=== PATIENT | female | born 1960 | race Caucasian/White ===

== ENCOUNTER 2021-03-15 21:50 | Emergency (ER) | payer OTHER ==
[2021-03-16 00:01] LABS: Absolute Lymphocytes (CBC) 2.8 K/uL (0.7-4.9); Basophils % 0.2 % (0-1.3); Hematocrit 36.3 % (36.0-45.0); Lymphocytes % 36.6 % (15.3-44.8); MPV 9.6 fL (7.6-11.3); RBC Red Blood Cell Count 4.06 M/uL (3.86-4.86)
[2021-03-16 00:01] LABS: Protime INR 1.03
[2021-03-16 00:20] LABS: ALT/SGPT 29 U/L (12-78); AST/SGOT 15 U/L (15-37); Albumin 3.8 g/dL (3.4-5.0); Alkaline Phosphatase 65 U/L (45-117); BUN Blood Urea Nitrogen 14 mg/dL (7-18); Bicarbonate 27 mmol/L (21-32); Bilirubin Direct 0.1 mg/dL (0-0.2); Bilirubin Total 0.3 mg/dL (0.2-1.0); Glucose Level 84 mg/dL (74-106); Magnesium 2.1 mg/dL (1.8-2.4); NT PRO-BNP 285 pg/mL (<125); Potassium 3.1 mmol/L (3.5-5.1); Protein, Total 6.7 g/dL (6.4-8.2); Sodium Level 142 mmol/L (136-145); Troponin (Emerg Dept Use Only) < 0.02 ng/mL (0.0-0.045)
--- NOTE | 2021-03-16 01:13 | EDPHYS ---
Physician Documentation [facility] Name: Mala Chavira Age: 60 yrs Sex: Female : 1960 Arrival Date: 03/15/2021 Time: 21:54 Bed 14 Private MD: ED Physician Horace Villatoro HPI: 03/15 22:41 This 60 yrs old Female presents to ER via Ambulatory with complaints of Chest pkl Pain > 30 y/o. 22:42 The patient presents with a history of heart racing. Onset: The symptoms/episode pkl began/occurred 2 day(s) ago. Associated signs and symptoms: Pertinent negatives: chest pain. Historical: - Allergies: 22:15 Bactrim; kg 22:15 Codeine; kg 22:15 Sulfa (Sulfonamide Antibiotics); kg - Home Meds: 22:15 clonazepam 1 mg Oral TbDi 3 times per day [Active]; losartan 50 mg Oral tab 1 tab once kg daily [Active]; pantoprazole 40 mg Oral TbEC 1 tab once daily [Active]; quetiapine 400 mg Oral tab 1 tab once daily [Active]; sertraline 100 mg Oral tab 1 tab once daily [Active]; - PMHx: 22:15 Depression; GERD; Glaucoma; Hep C - Cured; Hypertensive disorder; Night Terrors; kg - PSHx: 22:15 Cholecystectomy; Ligation of fallopian tube; kg - Immunization history:: Adult Immunizations not up to date, Client reports receiving the 2nd dose of the Covid vaccine, Date received: February 08, 2021 [place] Client reports receiving the 1st dose of the Covid vaccine, January 18, 2021 [place]. - Social history:: Smoking status: Patient denies any tobacco usage or history of. Patient uses alcohol, occasionally. ROS: 22:42 Eyes: Negative for injury, pain, redness, and discharge, ENT: Negative for injury, pkl pain, and discharge, Neck: Negative for injury, pain, and swelling. 22:42 Cardiovascular: Positive for palpitations. 22:42 Respiratory: Negative for cough, shortness of breath. 22:42 Abdomen/GI: Negative for abdominal pain, nausea, vomiting, and diarrhea. 22:42 Back: Negative for acute changes. 22:42 : Negative for urinary symptoms. 22:42 MS/extremity: Negative for acute changes. 22:42 Skin: Negative for rash. 22:42 Neuro: Negative for altered mental status, loss of consciousness. Exam: 22:42 Head/Face: Normocephalic, atraumatic. Eyes: Pupils equal round and reactive to light, pkl extra-ocular motions intact. Lids and lashes normal. Conjunctiva and sclera are non-icteric and not injected. Cornea within normal limits. Periorbital areas with no swelling, redness, or edema. ENT: Nares patent. No nasal discharge, no septal abnormalities noted. Tympanic membranes are normal and external auditory canals are clear. Oropharynx with no redness, swelling, or masses, exudates, or evidence of obstruction, uvula midline. Mucous membranes moist. Neck: Trachea midline, no thyromegaly or masses palpated, and no cervical lymphadenopathy. Supple, full range of motion without nuchal rigidity, or vertebral point tenderness. No Meningismus. Chest/axilla: Normal chest wall appearance and motion. Nontender with no deformity. No lesions are appreciated. 22:42 Cardiovascular: Rate: normal, Rhythm: regular. 22:42 ECG was reviewed by the Attending Physician. 22:42 Respiratory: the patient does not display signs of respiratory distress, Respirations: normal, Breath sounds: are clear throughout. 22:42 Abdomen/GI: Bowel sounds: normal, Palpation: abdomen is soft and non-tender, in all quadrants. 22:42 Back: Exam negative for acute changes. 22:42 : Exam negative for acute changes. 22:42 Musculoskeletal/extremity: Exam is negative for acute changes. 22:42 Skin: Exam negative for rash. 22:42 Neuro: Orientation: is normal, Mentation: is normal, Cranial nerves: grossly normal, Motor: is normal. Vital Signs: 22:03 BP 158 / 93; Pulse 70; Resp 20; Temp 98.3(TE); Pulse Ox 100% on R/A; Weight 81.65 kg kg (R); Height 5 ft. 4 in. (162.56 cm) (R); Pain 0/10; 22:56 BP 146 / 76 RA Supine (/lg); Pulse 66 MON; Resp 18; Temp 98.2; Pulse Ox 66% ; Weight wr 80.74 kg; Height 5 ft. (152.40 cm); Pain 0/10; 23:40 BP 137 / 84; Pulse 92; Resp 20; Temp 96.2; Pulse Ox 98% on R/A; cc4 03/16 00:16 BP 155 / 81; Pulse 60; Resp 20; Temp 97.6; Pulse Ox 60% ; wr 03/15 22:56 Body Mass Index 34.76 (80.74 kg, 152.40 cm) wr MDM: 03/15 22:33 Patient medically screened. pkl 03/16 01:06 Data reviewed: vital signs, nurses notes, lab test result(s), EKG, radiologic studies, pkl plain films. ED course: Patient feeling better. Discussed lab, EKG and CXR with patient. Advised to follow up with Dr. Grady ( Cardiology ) in 2 to 3 days for further evaluations. To return if necessary. Patient understood instructions. 03/15 22:40 Order name: Basic Metabolic Panel; Complete Time: 01:03 pkl 03/15 22:40 Order name: CBC with Diff; Complete Time: 00:16 pkl 03/15 22:40 Order name: LFT's; Complete Time: 01:03 pkl 03/15 22:40 Order name: Magnesium; Complete Time: 01:03 pkl 03/15 22:40 Order name: NT PRO-BNP; Complete Time: 01:03 pkl 03/15 22:40 Order name: PT-INR; Complete Time: 00:16 pkl 03/15 22:40 Order name: Troponin (emerg Dept Use Only); Complete Time: 01:03 pkl 03/15 22:40 Order name: XRAY Chest (1 view) pkl 03/15 22:40 Order name: EKG; Complete Time: 22:41 pkl 03/15 22:40 Order name: Cardiac monitoring; Complete Time: 22:44 pkl 03/15 22:40 Order name: EKG - Nurse/Tech; Complete Time: 22:44 pkl 03/15 22:40 Order name: TSH; Complete Time: 01:03 pkl 03/16 00:40 Order name: T4 Free; Complete Time: 01:03 EDMS 03/15 22:40 Order name: IV Saline Lock; Complete Time: 22:54 pkl 03/15 22:40 Order name: Labs collected and sent; Complete Time: 22:54 pkl 03/15 22:40 Order name: O2 Per Protocol; Complete Time: 22:44 pkl 03/15 22:40 Order name: O2 Sat Monitoring; Complete Time: 22:44 pkl Administered Medications: 01:20 Drug: K-Lyte (potassium) Effervescent Tablet 50 mEq Route: PO; wr Disposition Summary: 03/16/21 01:11 Discharge Ordered Location: Home pkl Problem: new pkl Symptoms: have improved pkl Condition: Stable pkl Diagnosis - Palpitations. Hypokalemia pkl Followup: pkl - With: Bradly Grady MD - When: 2 - 3 days - Reason: Re-evaluation by your physician Discharge Instructions: - Discharge Summary Sheet pkl Forms: - Medication Reconciliation Form pkl - Thank You Letter pkl - Antibiotic Education pkl - Prescription Opioid Use pkl Prescriptions: - Carvedilol 6.25 mg Oral Tablet - take 1 tablet by ORAL route 2 times per day with food; 60 tablet; Refills: 0, pkl Product Selection Permitted Signatures: Dispatcher [employer] Horace Prakash MD MD pkl Ghislaine Gutierres, ERIS RN Esme Morrissey wr
--- NOTE | 2021-03-16 01:13 | ER ---
Nurse's Notes [facility] Name: Mala Chavira Age: 60 yrs Sex: Female : 1960 Arrival Date: 03/15/2021 Time: 21:54 Bed 14 Private MD: Diagnosis: Palpitations. Hypokalemia Presentation: 03/15 22:03 Chief complaint: Patient states: Pt stated, " I feel like my heart is jumping all kg around." x 2 days. Coronavirus screen: Vaccine status: At this time, the client does not indicate any symptoms associated with coronavirus-19. Ebola Screen: Patient negative for fever greater than or equal to 101.5 degrees Fahrenheit, and additional compatible Ebola Virus Disease symptoms Patient denies exposure to infectious person. Patient denies travel to an Ebola-affected area in the 21 days before illness onset. Initial Sepsis Screen: Does the patient meet any 2 criteria? No. Patient's initial sepsis screen is negative. Does the patient have a suspected source of infection? No. Patient's initial sepsis screen is negative. Risk Assessment: Do you want to hurt yourself or someone else? Patient reports no desire to harm self or others. Onset of symptoms was March 14, 2021. 22:03 Method Of Arrival: Ambulatory kg 22:03 Acuity: SAVI 3 kg 22:14 Coronavirus screen: Vaccine status: Patient reports receiving the 2nd dose of the covid kg vaccine. Date February 08, 2021 [facility] Patient reports receiving the 1st dose of the Covid vaccine. Date January 18, 2021 [facility]. Triage Assessment: 22:15 General: Appears in no apparent distress. Behavior is calm, cooperative, appropriate kg for age, quiet. Pain: Denies pain. Cardiovascular: Reports It feels like I'm heart is jumping all over the place. Historical: - Allergies: 22:15 Bactrim; kg 22:15 Codeine; kg 22:15 Sulfa (Sulfonamide Antibiotics); kg - Home Meds: 22:15 clonazepam 1 mg Oral TbDi 3 times per day [Active]; losartan 50 mg Oral tab 1 tab once kg daily [Active]; pantoprazole 40 mg Oral TbEC 1 tab once daily [Active]; quetiapine 400 mg Oral tab 1 tab once daily [Active]; sertraline 100 mg Oral tab 1 tab once daily [Active]; - PMHx: 22:15 Depression; GERD; Glaucoma; Hep C - Cured; Hypertensive disorder; Night Terrors; kg - PSHx: 22:15 Cholecystectomy; Ligation of fallopian tube; kg - Immunization history:: Adult Immunizations not up to date, Client reports receiving the 2nd dose of the Covid vaccine, Date received: February 08, 2021 [place] Client reports receiving the 1st dose of the Covid vaccine, January 18, 2021 [place]. - Social history:: Smoking status: Patient denies any tobacco usage or history of. Patient uses alcohol, occasionally. Screenin:17 Abuse screen: Denies threats or abuse. Denies injuries from another. Nutritional kg screening: No deficits noted. Tuberculosis screening: No symptoms or risk factors identified. Fall Risk None identified. Assessment: 22:59 Reassessment: No changes from previously documented assessment. Pain: Denies pain. wr 22:59 Pain: Complains of pain in face Pain currently is 10 out of 10 on a pain scale. Pain cc4 began 2 hours ago. 23:40 Reassessment: Patient appears in no apparent distress at this time. Pain: Denies pain. cc4 23:48 Pain: Pain began. cc4 Vital Signs: 22:03 BP 158 / 93; Pulse 70; Resp 20; Temp 98.3(TE); Pulse Ox 100% on R/A; Weight 81.65 kg kg (R); Height 5 ft. 4 in. (162.56 cm) (R); Pain 0/10; 22:56 BP 146 / 76 RA Supine (/lg); Pulse 66 MON; Resp 18; Temp 98.2; Pulse Ox 66% ; Weight wr 80.74 kg; Height 5 ft. (152.40 cm); Pain 0/10; 23:40 BP 137 / 84; Pulse 92; Resp 20; Temp 96.2; Pulse Ox 98% on R/A; cc4 03/16 00:16 BP 155 / 81; Pulse 60; Resp 20; Temp 97.6; Pulse Ox 60% ; wr 03/15 22:56 Body Mass Index 34.76 (80.74 kg, 152.40 cm) wr ED Course: 03/15 21:54 Patient arrived in ED. wm 22:05 Triage completed. kg 22:17 Patient has correct armband on for positive identification. 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 Pulse kg ox on. NIBP on. 22:17 No provider procedures requiring assistance completed. Patient maintains SpO2 kg saturation greater than 95% on room air. 22:33 Horace Villatoro MD is Attending Physician. pkl 22:50 XRAY Chest (1 view) In Process Unspecified. EDMS 22:54 Basic Metabolic Panel Sent. wr 22:54 CBC with Diff Sent. wr 22:54 LFT's Sent. wr 22:55 Magnesium Sent. wr 22:55 NT PRO-BNP Sent. wr 22:55 PT-INR Sent. wr 22:55 Troponin (emerg Dept Use Only) Sent. wr 22:59 Inserted saline lock: 20 gauge in left antecubital area, using aseptic technique. wr 23:28 Pita Moralez, RN is Primary Nurse. cc4 23:40 IV discontinued, intact, bleeding controlled, No redness/swelling at site. Pressure cc4 dressing applied. 03/16 01:11 Bradly Grady MD is Referral Physician. pkl Administered Medications: 01:20 Drug: K-Lyte (potassium) Effervescent Tablet 50 mEq Route: PO; wr Outcome: 03/15 23:40 Discharged to home ambulatory. cc4 Condition: improved Discharge instructions given to patient, Instructed on discharge instructions, follow up and referral plans. medication usage, Demonstrated understanding of instructions, follow-up care, medications. 03/16 01:11 Discharge ordered by . pkl 01:36 Patient left the ED. wr Signatures: Dispatcher [employer] EDMS Horace Villatoro MD MD pkl Ghislaine Gutierres, ERIS RN Nataliia Morales Pita Moralez RN RN cc4 Esme Arambula wr
[2021-03-16] MEDS ORDERED: POTASSIUM 25 MEQ EFFERV TAB ONE (01:33)
[2021-03-16 01:47] VITALS: BP 155/81; TEMP 97.6; O2SAT 60
--- NOTE | 2021-03-16 07:11 | RAD REPORT ---
EXAM DESCRIPTION: RAD - Chest Single View - 03/15/2021 10:50 pm CLINICAL HISTORY: PALPITATIONS COMPARISON: CHEST PA AND LAT 2 VIEW dated 03/24/2010 FINDINGS: Lines: None. Lungs: No evidence of edema or pneumonia. Pleural: No significant pleural effusions or pneumothorax. Cardiac: The heart size is within normal limits. Bones: No acute fractures. Other: IMPRESSION: No acute cardiopulmonary disease.
--- NOTE | 2021-03-16 15:57 | EKG ---
Test Date: 2021-03-15 Test Time: 22:18:32 [employer]: MEASUREMENT RESULTS: Intervals: Rate: 70 NH: 150 QRSD: 82 QT: 398 QTc: 429 [place]: P: 19 NH: 150 QRS: 50 T: 28 INTERPRETIVE STATEMENTS: Normal sinus rhythm Cannot rule out Anterior infarct, age undetermined Abnormal ECG Compared to ECG 03/24/2010 09:06:30 Myocardial infarct finding now present Sinus bradycardia no longer present Electronically Signed On 03-16-21 15:56:17 CDT by Bradly Grady
== END 2021-03-16 01:36 | disposition home or self-care (01) ==
LOC: ER 21:50
DX: E87.6 Hypokalemia (principal); R00.2 Palpitations; I10 Essential (primary) hypertension; F32.9 Major depressive disorder, single episode, unspecified; Z88.1 Allergy status to other antibiotic agents; Z88.2 Allergy status to sulfonamides; Z88.5 Allergy status to narcotic agent
CPT/HCPCS: 36415; 71045; 80048; 80076; 83735; 83880; 84439; 84443; 84484; 85025; 85610; 93005; 99285

== ENCOUNTER 2022-08-09 10:34 | Emergency (ER) | payer OTHER ==
--- OUTSIDE RECORDS SUMMARY | 2022-08-09 10:38 | XMS REPORT | Continuity of Care Document ---
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 Thyrotropin [Units/volume] in 1.960 uIU/mL 0.450-4.500 Serum or Plasma by Detection limit <= 0.005 mIU/L (test code = 04071-3) Thyroxine (T4) free 0.86 NG/dL 0.82-1.77 [Mass/volume] in Serum or Plasma (test code = 3024-7) [facility] W Auto Differential panel - Blood 2020-01-22 00:00:00 Test Item Value Reference Range Interpretation Comments Leukocytes [#/volume] in Blood 6.6 x10e3/uL 3.4-10.8 by Automated count (test code = 6690-2) Erythrocytes [#/volume] in 4.62 x10e6/uL 3.77-5.28 Blood by Automated count (test code = 789-8) Hemoglobin [Mass/volume] in 14.0 g/dL 11.1-15.9 Blood (test code = 718-7) Hematocrit [Volume Fraction] of 42.4 % 34.0-46.6 Blood by Automated count (test code = 4544-3) MCV [Entitic volume] by 92 fL 79-97 Automated count (test code = 787-2) MCH [Entitic mass] by Automated 30.3 pg 26.6-33.0 count (test code = 785-6) MCHC [Mass/volume] by Automated 33.0 g/dL 31.5-35.7 count (test code = 786-4) Erythrocyte distribution width 12.4 % 11.7-15.4 [Ratio] by Automated count (test code = 788-0) Platelets [#/volume] in Blood 195 x10e3/uL 150-450 by Automated count (test code = 777-3) Neutrophils/100 leukocytes in 57 % not estab. Blood by Automated count (test code = 770-8) Lymphocytes/100 leukocytes in 31 % not estab. Blood by Automated count (test code = 736-9) Monocytes/100 leukocytes in 8 % not estab. Blood by Automated count (test code = 5905-5) Eosinophils/100 leukocytes in 3 % not estab. Blood by Automated count (test code = 713-8) Basophils/100 leukocytes in 0 % not estab. Blood by Automated count (test code = 706-2) immature cells (test code = mathematics education professor immature cells) Neutrophils [#/volume] in Blood 3.8 x10e3/uL 1.4-7.0 by Automated count (test code = 751-8) Lymphocytes [#/volume] in Blood 2.0 x10e3/uL 0.7-3.1 by Automated count (test code = 731-0) Monocytes [#/volume] in Blood 0.5 x10e3/uL 0.1-0.9 by Automated count (test code = 742-7) Eosinophils [#/volume] in Blood 0.2 x10e3/uL 0.0-0.4 by Automated count (test code = 711-2) Basophils [#/volume] in Blood 0.0 x10e3/uL 0.0-0.2 by Automated count (test code = 704-7) Immature granulocytes/100 1 % not estab. leukocytes in Blood by Automated count (test code = 03040-4) Immature granulocytes 0.0 x10e3/uL 0.0-0.1 [#/volume] in Blood by Automated count (test code = 19477-6) Nucleated erythrocytes/100 mathematics education professor leukocytes [Ratio] in Blood by Automated count (test code = 44712-9) Morphology [Interpretation] in mathematics education professor Blood Narrative (test code = 83515-9) [facility] CenterCom[facility] 2000 panel - Serum or [id number] 00:00:00 Test Item Value Reference Range Interpretation Comments Glucose [Mass/volume] in Serum 80 mg/dL 65-99 or Plasma (test code = 2345-7) Urea nitrogen [Mass/volume] in 19 mg/dL 8-27 Serum or Plasma (test code = 3094-0) Creatinine [Mass/volume] in 0.85 mg/dL 0.57-1.00 Serum or Plasma (test code = 2160-0) Glomerular filtration 75 mL/min/1.73 >59 rate/1.73 sq M.predicted among non-blacks [Volume Rate/Area] in Serum, Plasma or Blood by Creatinine-based formula (CKD-EPI) (test code = 62627-8) Glomerular filtration 86 mL/min/1.73 >59 rate/1.73 sq M.predicted among blacks [Volume Rate/Area] in Serum, Plasma or Blood by Creatinine-based formula (CKD-EPI) (test code = 37906-6) Urea nitrogen/Creatinine [Mass 22 12-28 Ratio] in Serum or Plasma (test code = 3097-3) Sodium [Moles/volume] in Serum 139 mmol/L 134-144 or Plasma (test code = 2951-2) Potassium [Moles/volume] in 4.4 mmol/L 3.5-5.2 Serum or Plasma (test code = 2823-3) Chloride [Moles/volume] in 101 mmol/L 96-106 Serum or Plasma (test code = 2074-0) Carbon dioxide, total 20 mmol/L 20-29 [Moles/volume] in Serum or Plasma (test code = 2027-9) Calcium [Mass/volume] in Serum 9.3 mg/dL 8.7-10.3 or Plasma (test code = 68032-3) Protein [Mass/volume] in Serum 7.4 g/dL 6.0-8.5 or Plasma (test code = 2885-2) Albumin [Mass/volume] in Serum 4.8 g/dL 3.8-4.9 or Plasma (test code = 1751-7) Globulin [Mass/volume] in 2.6 g/dL 1.5-4.5 Serum by calculation (test code = 21376-6) Albumin/Globulin [Mass Ratio] 1.8 1.2-2.2 in Serum or Plasma (test code = 1759-0) Bilirubin.total [Mass/volume] 0.5 mg/dL 0.0-1.2 in Serum or Plasma (test code = 1974-2) Alkaline phosphatase 67 IU/L 39-117 [Enzymatic activity/volume] in Serum or Plasma (test code = 6768-6) Aspartate aminotransferase 28 IU/L 0-40 [Enzymatic activity/volume] in Serum or Plasma (test code = 1920-8) Alanine aminotransferase 42 IU/L 0-32 H [Enzymatic activity/volume] in Serum or Plasma (test code = 1742-6) [facility] - [facility] or Plasma 2020-01-22 00:00:00 Test Item Value Reference Range Interpretation Comments Cholesterol [Mass/volume] in Serum 193 mg/dL 100-199 or Plasma (test code = 2092-3) Triglyceride [Mass/volume] in Serum 115 mg/dL 0-149 or Plasma (test code = 2571-8) Cholesterol in HDL [Mass/volume] in 76 mg/dL >39 Serum or Plasma (test code = 2084-9) Cholesterol in VLDL [Mass/volume] 23 mg/dL 5-40 in Serum or Plasma by calculation (test code = 67853-4) Cholesterol in LDL [Mass/volume] in 94 mg/dL 0-99 Serum or Plasma by calculation (test code = 96391-2) Laboratory comment [Text] in Report mathematics education professor Narrative (test code = 55854-7) [facility] [Presence] in Serum by RPR 2020-01-22 00:00:00 Test Item Value Reference Range Interpretation Comments Reagin Ab [Presence] in Serum by non reactive non reactive RPR (test code = 29893-2) [facility]HIV [facility]2 Ab+HIV1 p24 Ag [Presence] in Serum or Plasma by [id number] 00:00:00 Test Item Value Reference Range Interpretation Comments HIV 1+2 Ab+HIV1 p24 Ag non reactive non reactive [Presence] in Serum or Plasma by Immunoassay (test code = 74799-0) [facility] CenterHepatitis B virus surface Ag [Presence] in Serum or Plasma by [id number] 00:00:00 Test Item Value Reference Range Interpretation Comments Hepatitis B virus surface Ag negative negative [Presence] in Serum or Plasma by Immunoassay (test code = 5196-1) [facility]erc[facility] panel, [id number] 00:00:00 Test Item Value Reference Range Interpretation Comments interpretation (test code = note interpretation) pdf (test code = pdf) . [facility]Free T[facility] and TSH panel - Serum or [id number] 00:00:00 Test Item Value Reference Range Interpretation Comments Thyrotropin [Units/volume] in 1.960 uIU/mL 0.450-4.500 Serum or Plasma by Detection limit <= 0.005 mIU/L (test code = 62742-3) Thyroxine (T4) free 0.86 NG/dL 0.82-1.77 [Mass/volume] in Serum or Plasma (test code = 3024-7) [facility]CBC [facility] Auto Differential panel - Blood 2020-01-22 00:00:00 Test Item Value Reference Range Interpretation Comments Leukocytes [#/volume] in Blood 6.6 x10e3/uL 3.4-10.8 by Automated count (test code = 6690-2) Erythrocytes [#/volume] in 4.62 x10e6/uL 3.77-5.28 Blood by Automated count (test code = 789-8) Hemoglobin [Mass/volume] in 14.0 g/dL 11.1-15.9 Blood (test code = 718-7) Hematocrit [Volume Fraction] of 42.4 % 34.0-46.6 Blood by Automated count (test code = 4544-3) MCV [Entitic volume] by 92 fL 79-97 Automated count (test code = 787-2) MCH [Entitic mass] by Automated 30.3 pg 26.6-33.0 count (test code = 785-6) MCHC [Mass/volume] by Automated 33.0 g/dL 31.5-35.7 count (test code = 786-4) Erythrocyte distribution width 12.4 % 11.7-15.4 [Ratio] by Automated count (test code = 788-0) Platelets [#/volume] in Blood 195 x10e3/uL 150-450 by Automated count (test code = 777-3) Neutrophils/100 leukocytes in 57 % not estab. Blood by Automated count (test code = 770-8) Lymphocytes/100 leukocytes in 31 % not estab. Blood by Automated count (test code = 736-9) Monocytes/100 leukocytes in 8 % not estab. Blood by Automated count (test code = 5905-5) Eosinophils/100 leukocytes in 3 % not estab. Blood by Automated count (test code = 713-8) Basophils/100 leukocytes in 0 % not estab. Blood by Automated count (test code = 706-2) immature cells (test code = mathematics education professor immature cells) Neutrophils [#/volume] in Blood 3.8 x10e3/uL 1.4-7.0 by Automated count (test code = 751-8) Lymphocytes [#/volume] in Blood 2.0 x10e3/uL 0.7-3.1 by Automated count (test code = 731-0) Monocytes [#/volume] in Blood 0.5 x10e3/uL 0.1-0.9 by Automated count (test code = 742-7) Eosinophils [#/volume] in Blood 0.2 x10e3/uL 0.0-0.4 by Automated count (test code = 711-2) Basophils [#/volume] in Blood 0.0 x10e3/uL 0.0-0.2 by Automated count (test code = 704-7) Immature granulocytes/100 1 % not estab. leukocytes in Blood by Automated count (test code = 58408-6) Immature granulocytes 0.0 x10e3/uL 0.0-0.1 [#/volume] in Blood by Automated count (test code = 33217-2) Nucleated erythrocytes/100 mathematics education professor leukocytes [Ratio] in Blood by Automated count (test code = 69014-9) Morphology [Interpretation] in mathematics education professor Blood Narrative (test code = 16712-7) [facility]Com[facility] 2000 [facility] - Serum or [id number] 00:00:00 Test Item Value Reference Range Interpretation Comments Glucose [Mass/volume] in Serum 80 mg/dL 65-99 or Plasma (test code = 2345-7) Urea nitrogen [Mass/volume] in 19 mg/dL 8-27 Serum or Plasma (test code = 3094-0) Creatinine [Mass/volume] in 0.85 mg/dL 0.57-1.00 Serum or Plasma (test code = 2160-0) Glomerular filtration 75 mL/min/1.73 >59 rate/1.73 sq M.predicted among non-blacks [Volume Rate/Area] in Serum, Plasma or Blood by Creatinine-based formula (CKD-EPI) (test code = 78142-9) Glomerular filtration 86 mL/min/1.73 >59 rate/1.73 sq M.predicted among blacks [Volume Rate/Area] in Serum, Plasma or Blood by Creatinine-based formula (CKD-EPI) (test code = 31471-2) Urea nitrogen/Creatinine [Mass 22 12-28 Ratio] in Serum or Plasma (test code = 3097-3) Sodium [Moles/volume] in Serum 139 mmol/L 134-144 or Plasma (test code = 2951-2) Potassium [Moles/volume] in 4.4 mmol/L 3.5-5.2 Serum or Plasma (test code = 2823-3) Chloride [Moles/volume] in 101 mmol/L 96-106 Serum or Plasma (test code = 2075-0) Carbon dioxide, total 20 mmol/L 20-29 [Moles/volume] in Serum or Plasma (test code = 2027-9) Calcium [Mass/volume] in Serum 9.3 mg/dL 8.7-10.3 or Plasma (test code = 99771-9) Protein [Mass/volume] in Serum 7.4 g/dL 6.0-8.5 or Plasma (test code = 2885-2) Albumin [Mass/volume] in Serum 4.8 g/dL 3.8-4.9 or Plasma (test code = 1751-7) Globulin [Mass/volume] in 2.6 g/dL 1.5-4.5 Serum by calculation (test code = 90556-2) Albumin/Globulin [Mass Ratio] 1.8 1.2-2.2 in Serum or Plasma (test code = 1759-0) Bilirubin.total [Mass/volume] 0.5 mg/dL 0.0-1.2 in Serum or Plasma (test code = 1974-2) Alkaline phosphatase 67 IU/L 39-117 [Enzymatic activity/volume] in Serum or Plasma (test code = 6768-6) Aspartate aminotransferase 28 IU/L 0-40 [Enzymatic activity/volume] in Serum or Plasma (test code = 1920-8) Alanine aminotransferase 42 IU/L 0-32 H [Enzymatic activity/volume] in Serum or Plasma (test code = 1742-6) [facility] - [facility] or Plasma 2020-01-22 00:00:00 Test Item Value Reference Range Interpretation Comments Cholesterol [Mass/volume] in Serum 193 mg/dL 100-199 or Plasma (test code = 2093-3) Triglyceride [Mass/volume] in Serum 115 mg/dL 0-149 or Plasma (test code = 2571-8) Cholesterol in HDL [Mass/volume] in 76 mg/dL >39 Serum or Plasma (test code = 2085-9) Cholesterol in VLDL [Mass/volume] 23 mg/dL 5-40 in Serum or Plasma by calculation (test code = 16871-8) Cholesterol in LDL [Mass/volume] in 94 mg/dL 0-99 Serum or Plasma by calculation (test code = 64991-1) Laboratory comment [Text] in Report mathematics education professor Narrative (test code = 73755-4) [facility] [Presence] in Serum by RPR 2020-01-22 00:00:00 Test Item Value Reference Range Interpretation Comments Reagin Ab [Presence] in Serum by non reactive non reactive RPR (test code = 73070-8) [facility]HIV [facility]2 Ab+HIV1 p24 Ag [Presence] in Serum or Plasma by [id number] 00:00:00 Test Item Value Reference Range Interpretation Comments HIV 1+2 Ab+HIV1 p24 Ag non reactive non reactive [Presence] in Serum or Plasma by Immunoassay (test code = 94338-8) [facility] CenterHepatitis B virus surface Ag [Presence] in Serum or Plasma by [id number] 00:00:00 Test Item Value Reference Range Interpretation Comments Hepatitis B virus surface Ag negative negative [Presence] in Serum or Plasma by Immunoassay (test code = 5196-1) [facility]erc[facility], [id number] 00:00:00 Test Item Value Reference Range Interpretation Comments interpretation (test code = note interpretation) pdf (test code = pdf) . [facility] CenterCytology report of Cervical or vaginal smear or scraping Cyto stain.thin [id number] 00:00:00 Test Item Value Reference Range Interpretation Comments age gdln acog testing (test code = 30-65 age gdln acog testing) Cytology report of Cervical or comment vaginal smear or scraping Cyto stain (test code = 34951-5) Statement of adequacy comment [Interpretation] of Cervical or vaginal smear or scraping by Cyto stain (test code = 83656-5) Diagnosis ICD code [Identifier] comment (test code = 28001-8) Boarding House Manager who read Cyto stain of comment Cervical or vaginal smear or scraping (test code = 71773-3) QC reviewed by: (test code = QC comment reviewed by:) Microscopic observation [Identifier] . in Unspecified specimen by Other stain (test code = 83773-5) note: (test code = note:) comment Cytology report of Cervical or comment vaginal smear or scraping Cyto stain.thin prep (test code = 31525-1) Human papilloma virus negative negative 16+18+31+33+35+39+45+51+52+56+58+59+ 66+68 DNA [Presence] in Cervix by Probe with signal amplification (test code = 70354-5) Chlamydia trachomatis rRNA negative negative [Presence] in Cervix by CHUN with probe detection (test code = 50773-0) Neisseria gonorrhoeae rRNA negative negative [Presence] in Cervix by CHUN with probe detection (test code = 45890-8) Trichomonas vaginalis rRNA negative negative [Presence] in Unspecified specimen by CHUN with probe detection (test code = 95225-9) [facility] [id number] 11:28:34 Test Item Value Reference Range Interpretation Comments Right (test code = Right) Type A Normal Left (test code = Left) Type A Normal [facility]
[2022-08-09] MEDS ORDERED: MECLIZINE HCL 12.5 MG TAB ONE (11:04)
[2022-08-09 11:21] LABS: Absolute Lymphocytes (CBC) 2.1 K/uL (0.7-4.9); Hematocrit 41.4 % (36.0-45.0); Lymphocytes % 31.9 % (15.3-44.8); MCV 90.1 fL (80-100)
[2022-08-09 12:26] LABS: BUN Blood Urea Nitrogen 15 mg/dL (7-18); Bicarbonate 26 mmol/L (21-32); Glomerular Filtration Rate 81 ml/min (=/>90); Glucose Level 101 mg/dL (74-106); Potassium 4.2 mmol/L (3.5-5.1); Sodium Level 137 mmol/L (136-145)
[2022-08-09 12:31] LABS: Troponin High Sensitivity < 3.0 pg/mL (<58.9)
--- NOTE | 2022-08-09 13:07 | RAD REPORT ---
EXAM DESCRIPTION: CT - Head Brain Wo Cont - 08/09/2022 12:55 pm CLINICAL HISTORY: DIZZINESS COMPARISON: No comparisons TECHNIQUE: All CT scans are performed using dose optimization technique as appropriate and may inclu de automated exposure control or mA/KV adjustment according to patient size. FINDINGS: No intracranial hemorrhage, hydrocephalus or extra-axial fluid collection.No areas of brai n edema or evidence of midline shift. The paranasal sinuses and mastoids are clear. The calvarium is intact. IMPRESSION: No acute intracranial abnormality.
--- NOTE | 2022-08-09 13:09 | RAD REPORT ---
EXAM DESCRIPTION: CT - Head angio - 08/09/2022 12:55 pm CLINICAL HISTORY: DIZZINESS COMPARISON: Head Brain Wo Cont dated 08/09/2022 TECHNIQUE: CT angiography of the head was performed with MIPs. All CT scans are performed using dose optimization technique as appropriate and may include automated exposure control or mA/KV adjustment according to patient size. FINDINGS: Anterior circulation: No aneurysm or large vessel occlusion. No hemodynamically significant stenosis. No arteriovenous malf ormation identified. Posterior circulation: No aneurysm or large vessel occlusion. No hemodynamically significant stenosis. No arteriovenous malf ormation identified. IMPRESSION: No significant flow abnormality is detected.
--- NOTE | 2022-08-09 13:12 | RAD REPORT ---
EXAM DESCRIPTION: CT - Neck Angio - 08/09/2022 12:55 pm CLINICAL HISTORY: dizziness COMPARISON: No comparisons TECHNIQUE: CT angiography of the neck vessels was performed with MIPs. All CT scans are performed using dose optimization technique as appropriate and may include automated exposure control or mA/KV adjustment according to patient size. FINDINGS: No significant flow abnormality is seen of the common carotid bilaterally. Motion artifact is present at both of the carotid bifurcations. The right external carotid and internal control analyst al carotid arteries are widely patent. The left internal carotid and external carotid artery is are n ot as well assessed due to motion but favored widely patent. Normal flow is seen within both vertebral arteries. Multilevel degenerative changes are present in the spine. IMPRESSION: No significant flow abnormality of the neck vessels is identified. Mild limitation in ev aluating the left proximal ICA and ECA due to motion. There are favored patent .
[2022-08-09] MEDS ORDERED: DIAZEPAM 5 MG TABLET ONE (14:04)
--- NOTE | 2022-08-09 14:31 | EDPHYS ---
Physician Documentation [facility] Name: Mala Chavira Age: 61 yrs Sex: Female : 1960 Arrival Date: 08/09/2022 Time: 10:40 Bed 5 Private MD: Jean Burger E ED Physician El Quiroz HPI: 08/09 10:42 This 61 yrs old Female presents to ER via Wheelchair with complaints of Dizziness. jmm 10:42 The patient presents with dizziness. Onset: The symptoms/episode began/occurred jmm gradually, 1.5 week(s) ago. Is a 61-year-old female with history of depression, GERD, glaucoma, hypertension the presents emerged part with complaints of 1.5 weeks of dizziness which she attributes to her left ear. Patient states she has had similar episodes in the past and needed ENT to "clear out her ear". Patient denies chest pain, denies shortness of breath. . Historical: - Allergies: 10:45 Bactrim; iw 10:45 Codeine; iw 10:45 Sulfa (Sulfonamide Antibiotics); iw - Home Meds: 10:45 clonazepam 1 mg Oral TbDi 3 times per day [Active]; losartan 50 mg Oral tab 1 tab once iw daily [Active]; pantoprazole 40 mg Oral TbEC 1 tab once daily [Active]; quetiapine 400 mg Oral tab 1 tab once daily [Active]; sertraline 100 mg Oral tab 1 tab once daily [Active]; - PMHx: 10:45 Depression; GERD; Glaucoma; Hep C - Cured; Hypertensive disorder; Night Terrors; iw - PSHx: 10:45 Cholecystectomy; Ligation of fallopian tube; iw - Immunization history:: Adult Immunizations unknown. - Social history:: Smoking status: unknown. ROS: 10:42 Constitutional: Negative for fever, chills, and weight loss. jmm 10:42 Cardiovascular: Positive for chest pain, Negative for chest pain. 10:42 Respiratory: Negative for shortness of breath. 10:42 Neuro: Positive for dizziness. 10:42 All other systems are negative. Exam: 10:42 Constitutional: This is a well developed, well nourished patient who is awake, alert, jmm and in no acute distress. Head/Face: atraumatic. 10:42 Neck: Trachea midline, Supple Chest/axilla: Normal chest wall appearance and motion. Cardiovascular: Regular rate and rhythm. No edema appreciated Respiratory: Normal respirations, no respiratory distress appreciated Abdomen/GI: Non distended Back: Normal ROM Skin: General appearance color normal MS/ Extremity: Moves all extremities, no obvious deformities appreciated, no edema noted to the lower extremities 10:42 Eyes: Extraocular movements: intact throughout. 10:42 Neuro: Orientation: is normal, Mentation: is normal, Memory: is normal, Cerebellar function: normal finger to nose testing. 10:42 Psych: Behavior/mood is pleasant, cooperative. 11:09 ECG was reviewed by the Attending Physician. [facility] Vital Signs: 10:43 BP 133 / 87; Pulse 73; Resp 16; Temp 97.7; Pulse Ox 97% on R/A; Weight 84.82 kg; Height iw 5 ft. 4 in. (162.56 cm); Pain 0/10; 12:00 BP 118 / 90; Pulse 68; Resp 18 S; Pulse Ox 99% on R/A; Pain 0/10; kc6 13:04 BP 140 / 74; Pulse 84; Resp 18 S; Pulse Ox 100% on R/A; kc6 13:55 BP 161 / 87; Pulse 74; Resp 19 S; Pulse Ox 99% on R/A; Pain 0/10; kc6 10:43 Body Mass Index 32.10 (84.82 kg, 162.56 cm) iw MDM: 10:47 Patient medically screened. [facility] 14:29 Differential diagnosis: CVA, vertigo. Data reviewed: vital signs, nurses notes. [facility] Management of patient was discussed with the following: Quiroz. I considered the following discharge prescriptions or medication management in the emergency department Medications were administered in the Emergency Department. See MAR. Counseling: I had a detailed discussion with the patient and/or guardian regarding: the historical points, exam findings, and any diagnostic results supporting the discharge/admit diagnosis, lab results, radiology results, the need for outpatient follow up, to return to the emergency department if symptoms worsen or persist or if there are any questions or concerns that arise at home. ED course: Dizziness is alleviated in the ED. Advised follow-up with ENT for further evaluation otherwise given strict return precautions. Patient understood and agrees plan of care.. 08/09 10:57 Order name: Basic Metabolic Panel [facility] 08/09 10:57 Order name: CBC with Diff [facility] 08/09 10:57 Order name: Troponin HS [facility] 08/09 11:24 Order name: CBC with Automated Diff; Complete Time: 11:27 EDKS 08/09 12:32 Order name: Basic Metabolic Panel; Complete Time: 13:07 [facility] 08/09 12:32 Order name: Troponin High Sensitivity; Complete Time: 13:07 [facility] 08/09 10:58 Order name: CT Head Angio [facility] 08/09 10:58 Order name: CT Neck Angio [facility] 08/09 10:58 Order name: CT Head Brain wo Cont [facility] 08/09 13:08 Order name: CT; Complete Time: 13:53 EDKS 08/09 13:10 Order name: CT; Complete Time: 13:53 [facility] 08/09 13:12 Order name: CT; Complete Time: 13:53 EDKS 08/09 10:57 Order name: EKG; Complete Time: 10:57 [facility] 08/09 10:57 Order name: Cardiac monitoring; Complete Time: 10:57 [facility] 08/09 10:57 Order name: EKG - Nurse/Tech; Complete Time: 11:17 [facility] 08/09 10:57 Order name: IV Saline Lock; Complete Time: 11:17 [facility] 08/09 10:57 Order name: Labs collected and sent; Complete Time: 11:17 [facility] 08/09 10:57 Order name: O2 Per Protocol; Complete Time: 10:57 [facility] 08/09 10:57 Order name: O2 Sat Monitoring; Complete Time: 10:57 [facility] 08/09 11:49 Order name: Labs - recollect needed: recollect green top please; Complete Time: 11:[address] [facility] 08/09 13:57 Order name: Misc. Order: EARigation; Complete Time: 14:19 jm EC:09 Rate is 69 beats/min. Rhythm is regular. QRS Leiter is Normal. UT interval is normal. QRS jmm interval is normal. QT interval is normal. No Q waves. T waves are Normal. No ST changes noted. Reviewed by me. Administered Medications: 11:01 Drug: Meclizine 50 mg Route: PO; kc6 14:32 Follow up: Response: No adverse reaction kc6 14:00 Drug: Valium (diazepam) 5 mg Route: PO; kc6 14:32 Follow up: Response: No adverse reaction kc6 Disposition: 13:57 Co-signature as Attending Physician, El Quiroz DO I was immediately available on-site ms3 in the Emergency Department for consultation in the care of the patient. Disposition Summary: 08/09/22 14:30 Discharge Ordered Location: Home [facility] Condition: Stable [facility] Diagnosis - Dizziness and giddiness jmm - Left cerumen impaction [facility] Followup: [facility] - With: Lauryn Penaloza MD - When: 2 - 3 days - Reason: Recheck today's complaints, Continuance of care, Re-evaluation by your physician Discharge Instructions: - Discharge Summary Sheet [facility] - Dizziness [facility] - Vertigo [facility] Forms: - Medication Reconciliation Form [facility] - Thank You Letter [facility] - Antibiotic Education [facility] - Prescription Opioid Use [facility] Prescriptions: - Hydroxyzine HCl 25 mg Oral Tablet - take 1 tablet by ORAL route every 6 hours As needed; 12 tablet; Refills: 0, [facility] Product Selection Permitted - Meclizine 25 mg Oral Tablet - take 1 tablet by ORAL route every 8 hours As needed; 30 tablet; Refills: 0, [facility] Product Selection Permitted Signatures: Dispatcher [employer] EDMS Kenan Graf PA PA jmm Williams, Irene, RN Marv Youngblood em1 El Quiroz DO DO ms3 Thu Guzman RN RN kc6
--- NOTE | 2022-08-09 14:31 | ER ---
Nurse's Notes [facility] Name: Mala Chavira Age: 61 yrs Sex: Female : 1960 Arrival Date: 08/09/2022 Time: 10:40 Bed 5 Private MD: Jean Burger E Diagnosis: Dizziness and giddiness;Left cerumen impaction Presentation: 08/09 10:43 Chief complaint: Patient states: very dizzy X 10 days, I'm wobbling back and forth, I iw might have an ear infection, I have a bad left ear. Coronavirus screen: At this time, the client does not indicate any symptoms associated with coronavirus-19. Ebola Screen: Patient negative for fever greater than or equal to 101.5 degrees Fahrenheit, and additional compatible Ebola Virus Disease symptoms Patient denies exposure to infectious person. Patient denies travel to an Ebola-affected area in the 21 days before illness onset. No symptoms or risks identified at this time. Initial Sepsis Screen: Does the patient meet any 2 criteria? No. Patient's initial sepsis screen is negative. Does the patient have a suspected source of infection? No. Patient's initial sepsis screen is negative. Risk Assessment: Do you want to hurt yourself or someone else? Patient reports no desire to harm self or others. Onset of symptoms was July 27, 2022. 10:43 Method Of Arrival: Wheelchair iw 10:43 Acuity: SAVI 3 iw Historical: - Allergies: 10:45 Bactrim; iw 10:45 Codeine; iw 10:45 Sulfa (Sulfonamide Antibiotics); iw - Home Meds: 10:45 clonazepam 1 mg Oral TbDi 3 times per day [Active]; losartan 50 mg Oral tab 1 tab once iw daily [Active]; pantoprazole 40 mg Oral TbEC 1 tab once daily [Active]; quetiapine 400 mg Oral tab 1 tab once daily [Active]; sertraline 100 mg Oral tab 1 tab once daily [Active]; - PMHx: 10:45 Depression; GERD; Glaucoma; Hep C - Cured; Hypertensive disorder; Night Terrors; iw - PSHx: 10:45 Cholecystectomy; Ligation of fallopian tube; iw - Immunization history:: Adult Immunizations unknown. - Social history:: Smoking status: unknown. Screenin:56 [facility] ED Fall Risk Assessment (Adult) History of falling in the last 3 months, kc6 including since admission No falls in past 3 months (0 pts) Confusion or Disorientation No (0 pts) Intoxicated or Sedated No (0 pts) Impaired Gait No (0 pts) Mobility Assist Device Used No (0 pt) Altered Elimination No (0 pt) Score/Fall Risk Level 0 - 2 = Low Risk Oriented to surroundings, Maintained a safe environment, Educated pt \T\ family on fall prevention, incl call for assistance when getting out of bed, Assessed \T\ reinforced patient's understanding of fall precautions, Hourly rounding (assess needs \T\ fall precautionary measures) done. Abuse screen: Denies threats or abuse. Denies injuries from another. Nutritional screening: No deficits noted. Tuberculosis screening: No symptoms or risk factors identified. Assessment: 10:55 General: Appears in no apparent distress. comfortable, Behavior is calm, cooperative, kc6 appropriate for age. Pain: Denies pain. Neuro: [place]oto Agitation-Sedation Scale (RASS): 0 - Alert and Calm Level of Consciousness is awake, alert, obeys commands, Oriented to person, place, time, situation, Appropriate for age. Neuro: Reports dizziness. Cardiovascular: Capillary refill < 3 seconds Rhythm is sinus rhythm. Respiratory: Airway is patent Trachea midline Respiratory effort is even, unlabored, Respiratory pattern is regular, symmetrical. GI: No signs and/or symptoms were reported involving the gastrointestinal system. : No signs and/or symptoms were reported regarding the genitourinary system. EENT: No signs and/or symptoms were reported regarding the EENT system. Derm: No signs and/or symptoms reported regarding the dermatologic system. Skin is intact, Skin is pink, warm \T\ dry. Musculoskeletal: No signs and/or symptoms reported regarding the musculoskeletal system. Circulation, motion, and sensation intact. Capillary refill < 3 seconds, Range of motion: intact in all extremities. 11:55 Reassessment: Patient appears in no apparent distress at this time. No changes from kc6 previously documented assessment. Patient and/or family updated on plan of care and expected duration. Pain level reassessed. Patient is alert, oriented x 3, equal unlabored respirations, skin warm/dry/pink. Patient denies pain at this time. 12:55 Reassessment: Patient appears in no apparent distress at this time. No changes from kc6 previously documented assessment. Patient and/or family updated on plan of care and expected duration. Pain level reassessed. Patient is alert, oriented x 3, equal unlabored respirations, skin warm/dry/pink. Patient denies pain at this time. 13:55 Reassessment: Patient appears in no apparent distress at this time. No changes from kc6 previously documented assessment. Patient and/or family updated on plan of care and expected duration. Pain level reassessed. Patient is alert, oriented x 3, equal unlabored respirations, skin warm/dry/pink. Patient denies pain at this time. 14:25 Reassessment: attempted to irrigate left ear approximately 4 times per SORAYA Grayson. kc6 attempted unsuccessful. SORAYA Grayson notified. 14:30 Reassessment: discharge pending ride home due to administration of Valium 5mg PO. kc6 Vital Signs: 10:43 BP 133 / 87; Pulse 73; Resp 16; Temp 97.7; Pulse Ox 97% on R/A; Weight 84.82 kg; Height iw 5 ft. 4 in. (162.56 cm); Pain 0/10; 12:00 BP 118 / 90; Pulse 68; Resp 18 S; Pulse Ox 99% on R/A; Pain 0/10; kc6 13:04 BP 140 / 74; Pulse 84; Resp 18 S; Pulse Ox 100% on R/A; kc6 13:55 BP 161 / 87; Pulse 74; Resp 19 S; Pulse Ox 99% on R/A; Pain 0/10; kc6 10:43 Body Mass Index 32.10 (84.82 kg, 162.56 cm) ED Course: 10:40 Patient arrived in ED. am2 10:40 Jean Burger MD is Private Physician. am2 10:40 Kenan Graf PA is PHCP. [facility] 10:40 El Quiroz DO is Attending Physician. [facility] 10:45 Triage completed. iw 10:46 Arm band placed on. iw 10:55 Thu Guzman, ERIS is Primary Nurse. kc6 10:56 Patient has correct armband on for positive identification. Placed in gown. Bed in low kc6 position. Call light in reach. Side rails up X2. 11:17 Basic Metabolic Panel Sent. kc6 11:17 CBC with Diff Sent. kc6 11:17 Troponin HS Sent. kc6 11:18 Inserted saline lock: 20 gauge in right antecubital area, using aseptic technique. kc6 Blood collected. 14:30 Lauryn Penaloza MD is Referral Physician. [facility] 14:53 No provider procedures requiring assistance completed. IV discontinued, intact, kc6 bleeding controlled, No redness/swelling at site. Pressure dressing applied. Administered Medications: 11:01 Drug: Meclizine 50 mg Route: PO; kc6 14:32 Follow up: Response: No adverse reaction kc6 14:00 Drug: Valium (diazepam) 5 mg Route: PO; kc6 14:32 Follow up: Response: No adverse reaction kc6 Medication: 14:53 VIS not applicable for this client. kc6 Outcome: 14:30 Discharge ordered by . [facility] 14:53 Discharged to home ambulatory, with friend. kc6 14:53 Condition: stable 14:53 Discharge instructions given to patient, Instructed on discharge instructions, follow up and referral plans. medication usage, Demonstrated understanding of instructions, follow-up care, medications, Prescriptions given X 2. 14:54 Patient left the ED. kc6 Signatures: Kenan Graf PA PA jmm Williams, Irene, RN Etta Lehman Kaitlyn RN RN kc6
[2022-08-09 14:58] VITALS: TEMP 97.7
[2022-08-09 15:01] VITALS: BP 161/87; O2SAT 99
--- NOTE | 2022-08-10 13:22 | EKG ---
Test Date: 2022-08-09 Test Time: 11:08:14 Mysql Database Administrator: CLARENCE MEASUREMENT RESULTS: Intervals: Rate: 69 SC: 160 QRSD: 76 QT: 378 QTc: 405 [place]: P: 24 SC: 160 QRS: 66 T: 19 INTERPRETIVE STATEMENTS: Normal sinus rhythm Normal ECG Compared to ECG 03/15/2021 22:18:32 Myocardial infarct finding no longer present Electronically Signed On 08-10-22 13:19:01 MOLD MOVER by Joon Quijano
== END 2022-08-09 14:54 | disposition home or self-care (01) ==
LOC: ER 10:34
DX: R42 Dizziness and giddiness (principal); H61.22 Impacted cerumen, left ear; I10 Essential (primary) hypertension; K21.9 Gastro-esophageal reflux disease without esophagitis; Z88.1 Allergy status to other antibiotic agents; Z88.2 Allergy status to sulfonamides; Z88.5 Allergy status to narcotic agent
CPT/HCPCS: 93005; 85025; 80048; 36415; 84484; 70450; 70496; 70498; 99284; J8597; Q9967

== ENCOUNTER 2024-10-16 18:16 | Emergency (ER) | payer MEDICAID, OTHER ==
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
[2024-10-16] MEDS ORDERED: NA CHLORIDE 0.9% 1,000 ML ONE (18:40)
[2024-10-16 19:01] LABS: Absolute Eosinophils 0.1 K/uL (0-0.5); Absolute Lymphocytes (CBC) 2.6 K/uL (0.7-4.9); Absolute Monocytes 0.4 K/uL (0.1-1.3); Absolute Neutrophil 4.2 K/uL (1.8-8.0); Basophils % 0.5 % (0-1.3); Hematocrit 40.3 % (36.0-45.0); Hemoglobin 13.9 g/dL (12.0-15.0); Lymphocytes % 35.8 % (15.3-44.8); MCH 30.1 pg (27.0-35.0); MCHC 34.4 g/dL (32.0-36.0); MCV 87.6 fL (80-100); Monocytes % 5.4 % (3.3-12.3); Neutrophils % 57.3 % (41.7-73.7); Platelets 195 thou/uL (152-406); RBC Red Blood Cell Count 4.61 M/uL (3.86-4.86); Red Cell Distribution Width 12.6 % (12.1-15.2)
[2024-10-16 19:05] LABS: PT Prothrombin Time 11.7 SECONDS (10-13.0); PTT, Activated Partial Thromb 31.8 SECONDS (27.2-37.4); Protime INR 1.03
[2024-10-16 19:15] LABS: Barbiturates NEGATIVE (NEGATIVE); Benzodiazepines NEGATIVE (NEGATIVE); Cocaine NEGATIVE (NEGATIVE); METHAMPHETAM NEGATIVE (NEGATIVE); Methadone NEGATIVE (NEGATIVE); Opiates NEGATIVE (NEGATIVE); Phencyclidine NEGATIVE (NEGATIVE); THC Cannibis NEGATIVE (NEGATIVE)
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
[2024-10-16 19:31] LABS: ALT/SGPT 59 U/L (13-56); AST/SGOT 38 U/L (15-37); Albumin 4.2 g/dL (3.4-5.0); Albumin/Globulin Ratio 1.2 (1.1-1.8); Alkaline Phosphatase 76 U/L (45-117); BUN Blood Urea Nitrogen 10 mg/dL (7-18); Bicarbonate 21 mEq/L (21-32); Bilirubin Total 0.3 mg/dL (0.2-1.0); Globulin 3.6 g/dL (2.3-3.5); Glomerular Filtration Rate 55 ml/min (=/>90); Glucose Level 111 mg/dL (74-106); Protein, Total 7.8 g/dL (6.4-8.2); Sodium Level 142 mEq/L (136-145)
[2024-10-16 19:38] LABS: Bilirubin Direct < 0.2 mg/dL (0-0.2); Bilirubin Indirect, Calculated 0.1 mg/dL (0.2-0.8)
[2024-10-16 20:17] VITALS: TEMP 98.4
[2024-10-16 20:20] VITALS: BP 135/92; O2SAT 96
--- NOTE | 2024-10-19 12:11 | EKG ---
Test Date: 2024-10-16 Test Time: 18:55:13 Cda Teacher: ANNABELLA MEASUREMENT RESULTS: Intervals: Rate: 88 WA: 166 QRSD: 78 QT: 368 QTc: 445 [place]: P: 46 WA: 166 QRS: 57 T: 19 INTERPRETIVE STATEMENTS: Normal sinus rhythm Nonspecific ST abnormality Abnormal ECG Compared to ECG 08/09/2022 11:08:14 ST (T wave) deviation now present Electronically Signed On 10-19-24 12:07:47 CDT by Natalio Stephenson
== END 2024-10-16 19:57 | disposition home or self-care (01) ==
LOC: ER 18:16
DX: Z04.71 Encounter for examination and observation following alleged adult physical abuse (principal)
CPT/HCPCS: 93005; 85025; 80048; 36415; 85610; 80076; 85730; 80307; 70450; 96360; 99285; 80143; 82077; J7030